=== PATIENT | male | born 1970 | race Caucasian/White ===

== ENCOUNTER 2019-03-20 11:24 | Emergency (ER) | payer OTHER ==
[~2019-03-20] VITALS: Ht 175.3 cm; Wt 95.2 kg
[~2019-03-20 11:24] MED LIST: CYCL10 PO; IBUP600 PO; LORA2 PO; NAPR500 PO; Norco 5-325 Ta1 EACH PO; PARO20 PO; Percocet 5-3251 EACH PO; Prinivil10 MG PO
[2019-03-20] MEDS ORDERED: Percocet 5-3251 EACH PO (13:56)
== END 2019-03-20 14:45 | disposition home or self-care (01) ==
LOC: ER 11:24
DX: S82.851A Displaced trimalleolar fracture of right lower leg, initial encounter for closed fracture (principal); X50.9XXA Other and unspecified overexertion or strenuous movements or postures, initial encounter; F17.210 Nicotine dependence, cigarettes, uncomplicated
CPT/HCPCS: 27818; 73600; 73610; 96374-59; 96376-59; 99152; 99283-25; J1170; J2405; J2704; J7030

== ENCOUNTER 2019-03-25 11:00 | Day surgery (SDC) | payer OTHER ==
[~2019-03-25] VITALS: Ht 175.3 cm; Wt 95.6 kg
--- NOTE | 2019-03-25 11:30 | NUR ---
History, Chart, Medications and Allergies reviewed before start of procedure. Patient States Post-Procedure ride home has been arranged. Lungs clear T/O to Auscultation.
--- NOTE | 2019-03-25 11:47 | NUR ---
Pre-Op teaching done. Pt verbalizes understanding.
--- NOTE | 2019-03-25 12:17 | NUR ---
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
--- NOTE | 2019-03-25 12:19 | NUR ---
ATTEMPTS TO REACH PATIENT'S GIRLFRIEND PRESURGICALLY, UNABLE TO LOCATE HER AT THIS TIME.
--- NOTE | 2019-03-25 15:48 | NUR ---
Discharge instructions reviewed with patient. Patient verbalizes understanding. Copy given to patient to take home. PATEINT REPORTS PAIN DECREASED TO 7/10. "NOTHING i CAN'T MANAGE. DENIES ANY PAIN OR NAUSEA. Discharged via wheelchair to private car for ride home WITH SPOUSE
== END 2019-03-25 22:56 | disposition home or self-care (01) ==
LOC: ORSCMMR 11:00 → ORD 13:30 → ORSCMMR 22:56
PROVIDERS: Orthopaedic Surgery
PROC: 0QSJ04Z Reposition Right Fibula with Internal Fixation Device, Open Approach (ICD-10-PCS; principal; 2019-03-25 13:30)
DX: S82.61XA Displaced fracture of lateral malleolus of right fibula, initial encounter for closed fracture (principal); I10 Essential (primary) hypertension; F17.210 Nicotine dependence, cigarettes, uncomplicated; Z79.899 Other long term (current) drug therapy
CPT/HCPCS: C1713; J0690; J1100; J1885; J2250; J2405; J2704; J2765; J3010; J7120

== ENCOUNTER 2019-06-10 16:30 | Emergency (ER) | payer OTHER ==
[~2019-06-10] VITALS: Ht 175.3 cm; Wt 102.1 kg
[2019-06-10 16:59] LABS: BASOPHILS ABSOLUTE AUTO 0.03 K/mm3 (0.00-0.23); BASOPHILS PERCENT AUTO 0 % (0-2); EOSINOPHILS ABSOLUTE AUTO 0.13 K/mm3 (0.00-0.68); EOSINOPHILS PERCENT AUTO 2 % (0-6); Hematocrit 45.6 % (37.0-53.0); IMMATURE GRAN ABSOLUTE AUTO 0.04 K/mm3 (0.00-0.10); IMMATURE GRAN PERCENT AUTO 1 % (0-1); LYMPHOCYTES ABSOLUTE AUTO 2.29 K/mm3 (0.84-5.20); LYMPHOCYTES PERCENT AUTO 30 % (21-46); MONOCYTES ABSOLUTE AUTO 0.48 K/mm3 (0.16-1.47); MONOCYTES PERCENT AUTO 6 % (4-13); Mean Corpuscular HGB 31.3 pg (26.0-34.0); Mean Corpuscular HGB Conc 35.1 g/dL (31.5-36.5); Mean Corpuscular Volume 89 fL (80-100); Mean Platelet Volume 10.6 fL (9.1-12.4); NEUTROPHILS ABSOLUTE AUTO 4.62 K/mm3 (1.96-9.15); NEUTROPHILS PERCENT AUTO 61 % (41-73); Platelet Count 240 K/mm3 (150-400); RDW Coefficient Variation 12.9 % (11.7-14.2); RDW Standard Deviation 42.4 fL (35.1-46.3); Red Blood Cell Count 5.12 M/mm3 (4.30-5.90); White Blood Cell Count 7.59 K/mm3 (4.00-11.30)
[2019-06-10 17:18] LABS: International Normalized Ratio 0.94
[2019-06-10 17:21] LABS: Alanine Aminotransfer (ALT/SGP 44 U/L (12-78); Albumin, Blood 3.9 g/dL (3.4-5.0); Albumin/Globulin Ratio 1.3 (0.8-1.8); Alk Phos 97 U/L (50-136); Anion Gap 8 mmol/L (6-16); Aspartate Aminotrans (AST/SGOT 28 U/L (12-37); Bilirubin, Total 0.7 mg/dL (0.1-1.0); Blood Urea Nitrogen 10 mg/dL (8-24); Bun/Creatinine Ratio 9.3 (12.0-20.0); CO2, Blood 22 mmol/L (21-32); Calcium, Blood 8.4 mg/dL (8.5-10.1); Chloride, Blood 107 mmol/L (98-108); Creatinine, Blood 1.08 mg/dL (0.60-1.20); Globulin, Blood 3.1 g/dL (2.2-4.0); Glomerular Filtration Rate >60 (60-); Glucose, Blood 119 mg/dL (70-99); Sodium, Blood 137 mmol/L (136-145)
[2019-06-10] MEDS ORDERED: Norco 5-325 Ta1 EACH PO (19:10)
[2019-06-10] MEDS ORDERED: XARELTO15 MG PO (19:10)
== END 2019-06-10 19:39 | disposition home or self-care (01) ==
LOC: ER 16:30
PROVIDERS: Physician Assistant
DX: I82.451 Acute embolism and thrombosis of right peroneal vein (principal); F17.210 Nicotine dependence, cigarettes, uncomplicated
CPT/HCPCS: 36415; 80053; 85025; 85610; 93971; 99283

== ENCOUNTER 2019-06-28 11:05 | Emergency (ER) | payer OTHER ==
[~2019-06-28] VITALS: Ht 175.3 cm; Wt 97.1 kg
[~2019-06-28 11:05] MED LIST changes: +XARELTO15 MG PO
[2019-06-28 11:42] LABS: BASOPHILS ABSOLUTE AUTO 0.06 K/mm3 (0.00-0.23); BASOPHILS PERCENT AUTO 1 % (0-2); EOSINOPHILS ABSOLUTE AUTO 0.09 K/mm3 (0.00-0.68); EOSINOPHILS PERCENT AUTO 1 % (0-6); Hematocrit 45.9 % (37.0-53.0); Hemoglobin 15.6 g/dL (13.5-17.5); IMMATURE GRAN ABSOLUTE AUTO 0.03 K/mm3 (0.00-0.10); IMMATURE GRAN PERCENT AUTO 0 % (0-1); LYMPHOCYTES ABSOLUTE AUTO 2.26 K/mm3 (0.84-5.20); LYMPHOCYTES PERCENT AUTO 30 % (21-46); MONOCYTES ABSOLUTE AUTO 0.55 K/mm3 (0.16-1.47); MONOCYTES PERCENT AUTO 7 % (4-13); Mean Corpuscular HGB 30.9 pg (26.0-34.0); Mean Corpuscular Volume 91 fL (80-100); Mean Platelet Volume 10.1 fL (9.1-12.4); NEUTROPHILS PERCENT AUTO 61 % (41-73); Platelet Count 212 K/mm3 (150-400); RDW Coefficient Variation 13.3 % (11.7-14.2); RDW Standard Deviation 44.1 fL (35.1-46.3); Red Blood Cell Count 5.05 M/mm3 (4.30-5.90); White Blood Cell Count 7.59 K/mm3 (4.00-11.30)
[2019-06-28 11:59] LABS: Alanine Aminotransfer (ALT/SGP 34 U/L (12-78); Albumin/Globulin Ratio 1.4 (0.8-1.8); Alk Phos 97 U/L (50-136); Anion Gap 4 mmol/L (6-16); Aspartate Aminotrans (AST/SGOT 17 U/L (12-37); Bilirubin, Total 0.4 mg/dL (0.1-1.0); Blood Urea Nitrogen 12 mg/dL (8-24); Bun/Creatinine Ratio 12.3 (12.0-20.0); CO2, Blood 30 mmol/L (21-32); Calcium, Blood 8.7 mg/dL (8.5-10.1); Chloride, Blood 108 mmol/L (98-108); Creatinine, Blood 0.98 mg/dL (0.60-1.20); Globulin, Blood 2.9 g/dL (2.2-4.0); Glomerular Filtration Rate >60 (60-); Glucose, Blood 75 mg/dL (70-99); Sodium, Blood 142 mmol/L (136-145); Total Protein, Blood 6.9 g/dL (6.4-8.2)
[2019-06-28] MEDS ORDERED: HYDR1TAB94 PO (12:11)
== END 2019-06-28 12:25 | disposition home or self-care (01) ==
LOC: ER 11:05
PROVIDERS: Emergency Medicine
DX: M25.571 Pain in right ankle and joints of right foot (principal); R60.0 Localized edema; F17.210 Nicotine dependence, cigarettes, uncomplicated; Z88.5 Allergy status to narcotic agent; Z79.899 Other long term (current) drug therapy; Z86.718 Personal history of other venous thrombosis and embolism
CPT/HCPCS: 36415; 80053; 85025; 99283; A9270-GY

== ENCOUNTER 2025-05-14 07:18 | Day surgery (SDC) | payer OTHER ==
[~2025-05-14] VITALS: Ht 175.3 cm; Wt 104.1 kg
[~2025-05-14 07:18] MED LIST changes: +ALBU90OI INH; +ATOR40TA PO; +Aspir 8181 MG PO; +GABA300 PO; +HYDCHL25 PO; +HYDR1TAB94 PO; +LISI20 PO; +METO25ER PO; +NITR.6SL SL; +OMEP20ER PO
[2025-05-14 07:34] VITALS: BP 136/69
[2025-05-14] MEDS ORDERED: NS 250 ML IV ONE (07:44)
[2025-05-14] MEDS ORDERED: Heparin Sodium 1000 Units/ML 10ML MDV ONE (07:44)
[2025-05-14] MEDS ORDERED: Verapamil HCL 2.5 MG/ML 2ML Injection ONE (07:44)
[2025-05-14] MEDS ORDERED: NS 1,000 ML IV ONE ×2 (07:44→07:57)
[2025-05-14] MEDS ORDERED: Nitroglycerin 2 MG/20 ML BTL ONE (07:44)
[2025-05-14] MEDS ORDERED: FentaNYL Citrate 50 MCG/ML 2 ML Injection ONE (07:56)
[2025-05-14] MEDS ORDERED: Midazolam HCl 1MG / ML 2ML Vial ONE (07:57)
[2025-05-14 09:00] VITALS: BP 117/82
[2025-05-14 09:15] VITALS: BP 121/87
[2025-05-14 09:30] VITALS: BP 119/77
[2025-05-14 10:00] VITALS: BP 119/77
[2025-05-14 10:30] VITALS: BP 112/71
--- NOTE | 2025-05-14 11:27 | NUR ---
BLOCK CHARTING TR Band deflation and removal: -2ml @ 1034 -2ml @ 1051 -5ml @ 1107 Band removed at 1110, cloth dot dressing put in place with armboard. No bleeding, swelling or hematoma noted at site. Slight bruise noted just proximal to insertion site. Pt states site is tender to the touch.
== END 2025-05-14 13:01 | disposition home or self-care (01) ==
LOC: MHTC 07:18
DX: I25.119 Atherosclerotic heart disease of native coronary artery with unspecified angina pectoris (principal); I11.0 Hypertensive heart disease with heart failure; I50.9 Heart failure, unspecified; E78.5 Hyperlipidemia, unspecified; J44.9 Chronic obstructive pulmonary disease, unspecified; G56.03 Carpal tunnel syndrome, bilateral upper limbs; Z86.718 Personal history of other venous thrombosis and embolism; Z87.891 Personal history of nicotine dependence; Z79.82 Long term (current) use of aspirin; Z79.899 Other long term (current) drug therapy; Z88.5 Allergy status to narcotic agent
CPT/HCPCS: 76937; 93458; 99152; A9270; C1769; C1887; C1894; J1644; J2250; J3010; J7030; J7050; Q9967